=== PATIENT | female | born 1945 | race Caucasian/White ===

== ENCOUNTER → 2017-10-04 | Day surgery (SDC) | payer OTHER ==
[~2017-10-04] VITALS: Ht 160 cm; Wt 131.5 kg
[~2017-10-04] MED LIST: CHLORTHALIDONE25 M1 PO; LANSOPRAZOLE30 M2 PO; PERCOCET 5-3251 EACH PO; TRAMADOL HCL50 M1 PO
[2017-10-04 14:35] LABS: PT 11.9 SEC (9.4-12.5); PTT 27 SEC (25-37)
[2017-10-04 15:50] LABS: ABSOLUTE BASOPHIL COUNT 0.1 /CUMM (0.0-0.2); ABSOLUTE EOSINOPHIL COUNT 1.3 /CUMM (0.0-0.7); ABSOLUTE GRANULOCYTE CT 5.6 /CUMM (1.4-6.5); ABSOLUTE LYMPH COUNT 1.1 /CUMM (1.2-3.4); ABSOLUTE MONOCYTE COUNT 0.6 /CUMM (0.10-0.60); BASOPHIL % 0.7 % (0.0-2.0); GRANULOCYTE % 64.4 % (42.2-75.2); HEMATOCRIT 39.8 % (37-47); MEAN CORPUSCULAR HGB 29.1 PG (27.0-31.0); MEAN CORPUSCULAR HGB CONC 33.3 G/DL (33.0-37.0); MEAN CORPUSCULAR VOLUME 87.5 FL (81.0-99.0); MEAN PLATELET VOLUME 8.6 FL (7.4-10.4); PLATELET COUNT 233 /CUMM (130-400); RBC DISTRIBUTION WIDTH 15.6 % (11.5-14.5); RED BLOOD CELL CT 4.55 /CUMM (4.20-5.40); WHITE BLOOD CELL COUNT 8.7 /CUMM (4.8-10.8)
--- NOTE | 2017-10-04 19:33 | Operative Report ---
Operative/Inv Procedure Report Surgery Date: 10/04/17 Name of Procedure: Incisional biopsy neck mass, left Pre-Operative Diagnosis: Neck mass, left Post-Operative Diagnosis: Same Estimated Blood Loss: scant Surgeon/Fly Rail Operator: Leeanne Pierre MD Anesthesia: laryngeal mask airway Drains: GOMEZ 1 Specimens: Neck mass, left Microbiology: Neck mass, left routine cultures, Gram stain, fungus, mycobacterial Complications: Non- Condition: Stable on leaving the OR Operative Indication: Rapidly growing neck mass, left Operative/Procedure Note Note: The patient was brought to the operating room, placeded on the operating room table in supine position. At first timeout was performed including patient's identification and the surgical procedure to be performed. Then general LMA anesthesia was induced. Tube was taped on the right. Table was rotated 90 to the patient's left away from anesthesia with left neck toward the surgeon. Head was rotated to the right, left neck exposed. Neck was prepped and draped in the routine manner and surgery was performed. Patient had extensive adenopathy throughout the entire lateral neck on the left. Dense tissue was present in subcutaneous area in the supraclavicular region. The overlying skin and had all ecchymotic changes. Decision was made to all obtained. None from this particular region. An horizontal incision was placed in a skin crease directly overlying the very dense ecchymotic raised region. The incision was carried through the skin into subcutaneous tissue. The entire region was very fibrotic interspaced with abnormal looking tissue as well as fibrofatty tissue. This tissue was then submitted to pathology and cultures. In addition a small segment of skin parallel to the incision was excised for additional pathology. The area was very inflamed and hemorrhagic during the excision. Bleeding was controlled with application of pressure. Surgery was completed. Wound was copiously irrigated. Additional bleeding sites cauterized with bipolar. Helotene powder was placed into the neck dissection bed. A #10 Dominican suction drain was inserted into the wound for drainage, exiting through the posterior end of the incision. Drains were stitched in place with 2-0 silk. Closure was then carried in the subcutaneous manner with 4-0 Vicryl inverting sutures followed by skin closure with 4-0 Vicryl simple sutures . Dermabond was applied to the incision followed by Steri-Strips. Pressure dressing was applied with fluffs and tape. Patient was then reawakened, extubated and taken to the recovery room in good condition. There were no complications. Estimated blood loss was scant. Findings: Neck, supraclavicular region, left dense fibrotic tissue interspersed with abnormal appearing tissue extending into the skin layer Discharge Disposition: PACU
== END ==
LOC: STS 02:02
PROVIDERS: Otolaryngology
DX: C49.0 Malignant neoplasm of connective and soft tissue of head, face and neck (principal); R59.0 Localized enlarged lymph nodes; E83.50 Unspecified disorder of calcium metabolism; G47.33 Obstructive sleep apnea (adult) (pediatric); K21.9 Gastro-esophageal reflux disease without esophagitis; Z96.653 Presence of artificial knee joint, bilateral
CPT/HCPCS: 87070; 87075; 36415; 87147; 93005; 93010; J0131; J0690; J1100; J1885; J2250; J2405